=== PATIENT | male | born 1955 | race Caucasian/White ===

== ENCOUNTER 2023-12-26 09:43 | Observation (INO) ==
[~2023-12-26 09:43] MED LIST: Buffered Lidocaine 1% SYRIN 1 ml INTRADERM ONE; Lactated Ringers 1000 ml BAG 1,000 ML IV SCH
[2023-12-26] MEDS ORDERED: ceFAZolin 2 GM PREMIX 2 GM/50 ML BAG ONE (10:18)
[2023-12-26] MEDS ORDERED: Tranexamic Acid 1 GM/100ML BAG 2,000 MG/200 ML BAG IV ONE (10:18)
[2023-12-26 10:22] LABS: Rapid COVID-19 Molecular Undetected (Undetected)
[2023-12-26] MEDS ORDERED: Lidocaine 2% PF 5 ML VIAL ONE ×2 (10:54→13:17)
[2023-12-26] MEDS ORDERED: Ondansetron 4 mg VIAL 2 MG/ML 2 ml VIAL ONE (10:57)
[2023-12-26] MEDS ORDERED: fentaNYL 100 mcg/2 ml 50 MCG/ML VIAL ONE ×2 (10:57→11:13)
[2023-12-26] MEDS ORDERED: Midazolam 5 mg/5 ml VIAL 1 mg/ml 5 ml VIAL (5 mg) ONE (11:13)
[2023-12-26] MEDS ORDERED: ROPIVACAINE 5 MG/ML 30 ML BTL (0.5%) ONE ×2 (11:13→12:13)
[2023-12-26] MEDS ORDERED: Ondansetron 4 mg VIAL 2 MG/ML 2 ml VIAL IV PRN ×2 (13:36→15:55)
[2023-12-26] MEDS ORDERED: Naloxone 0.4 mg VIAL 0.4 mg/ml 1 ml VIAL IV PRN (13:36)
[2023-12-26] MEDS ORDERED: fentaNYL 100 mcg/2 ml 50 MCG/ML VIAL IV PRN (13:36)
[2023-12-26] MEDS ORDERED: Dexamethasone IV 4 MG/ML VIAL 1 ml VIAL ONE (14:01)
[2023-12-26] MEDS ORDERED: Midazolam 2 mg/2 ml VIAL 1 mg/ml 2 ml VIAL (2 mg) ONE (14:02)
[2023-12-26] MEDS ORDERED: Propofol 10 MG/ML 20 ML BTL ONE ×2 (14:46→15:28)
[2023-12-26] MEDS ORDERED: Lactulose 30 ml UDC PO PRN (15:55)
[2023-12-26] MEDS ORDERED: Magnesium Hydroxide LIQ 30 ML UDC PO PRN (15:55)
[2023-12-26] MEDS ORDERED: Morphine 2 MG/ML SYRINGE IV PRN (15:55)
[2023-12-26] MEDS: Lactated Ringers 1000 ml BAG 1,000 ML IV SCH (17:07)
[2023-12-26] MEDS: Ondansetron ODT 4 mg TAB 4 MG TAB PO PRN (20:20)
[2023-12-26] MEDS: Magnesium Hydroxide LIQ 30 ML UDC PO SCH (21:28)
[2023-12-26] MEDS: ceFAZolin 1 GM ADVAN 1 GM in NS 0.9% 50 ML 50 ML IVPB SCH (22:21)
[2023-12-27] MEDS: Lactated Ringers 1000 ml BAG 1,000 ML IV SCH (02:45)
[2023-12-27] MEDS: ceFAZolin 1 GM ADVAN 1 GM in NS 0.9% 50 ML 50 ML IVPB SCH ×2 (06:30→13:05)
[2023-12-27] MEDS: Ondansetron ODT 4 mg TAB 4 MG TAB PO PRN ×2 (06:38→13:04)
[2023-12-27 06:41] LABS: Hemoglobin 12.9 g/dL (13.2-16.3); Mean Platelet Volume 9.5 fL (7.5-11.2); Platelet Count 240 10^3/uL (150-450)
[2023-12-27 06:59] LABS: Calcium 8.8 mg/dL (8.6-10.3); Creatinine, Serum 0.76 mg/dL (0.67-1.17); Potassium 3.1 mmol/L (3.5-5.0); eGFR CKD-EPI 97.3 (>60)
[2023-12-27] MEDS: Magnesium Hydroxide LIQ 30 ML UDC PO SCH (08:04)
[2023-12-27] MEDS ORDERED: Influenza vaccine *QUAD* *2023-24* 0.5 ML SYRINGE IM ONE (09:00)
[2023-12-27] MEDS ORDERED: Vitamin THERAPEUTIC TAB PO SCH (09:00)
[2023-12-27 10:10] VITALS: BP 134/79
== END 2023-12-27 14:20 | disposition home or self-care (01) ==
LOC: SSU 09:43 → OR 09:43
PROVIDERS: ADMIT Orthopaedic Surgery Adult Reconstructive Orthopaedic Surgery; ATTEND Orthopaedic Surgery Adult Reconstructive Orthopaedic Surgery